=== PATIENT | female | born 1985 | race Caucasian/White ===

== ENCOUNTER 2016-07-26 06:02 | Day surgery (SDC) | payer BC ==
[2016-07-21 17:34] LABS: BASOPHILS 0.2 %; BASOPHILS ABSOLUTE 0.02 10/3/uL (0.0-0.16); EOSINOPHILS 0.8 %; EOSINOPHILS ABSOLUTE 0.08 10/3/uL (0.0-0.53); HEMATOCRIT 37.7 % (36.0-48.0); HEMOGLOBIN 12.6 g/dL (12.0-16.0); IMMATURE GRANULOCYTES 0.2 %; IMMATURE GRANULOCYTES ABSOLUTE 0.02 10/3/uL (0.0-0.11); LYMPHOCYTES 20.2 %; LYMPHOCYTES ABSOLUTE 2.05 10/3/uL (0.67-4.30); MANUAL DIFF NO %; MEAN CORPUS HGB CONC 33.4 g/dL (32.0-36.0); MEAN CORPUSCULAR HEMOGLOB 31.2 pg (26.0-34.0); MEAN CORPUSCULAR VOLUME 93.3 fL (80-100); MEAN PLATELET VOLUME 9.4 fL (9.2-13.0); MONOCYTES 5.5 %; MONOCYTES ABSOLUTE 0.56 10/3/uL (0.21-1.20); NEUTROPHILS 73.1 %; NEUTROPHILS ABSOLUTE 7.41 10/3/uL (2.02-8.40); PLATELET COUNT 336 10/3/uL (150-400); RED CELL COUNT 4.04 10/6/uL (4.0-5.6); WHITE BLOOD CELLS 10.1 10/3/uL (4.5-10.5)
[2016-07-21 17:46] LABS: A/G RATIO 1.2 (0.7-1.9); ALBUMIN 3.8 G/DL (3.5-5.0); ALKALINE PHOSPHATASE 76 U/L (45-117); BUN (BLOOD UREA NITROGEN) 16 MG/DL (6-23); CALCIUM, SERUM 8.6 MG/DL (8.5-10.4); CHLORIDE, SERUM 104 MMOL/L (96-112); CO2 (CARBON DIOXIDE) 29 MMOL/L (24-34); CREATININE 0.69 MG/DL (0.55-1.02); GFR AFRICAN AMERICAN 133 ML/MIN (>=60); GFR NON AFRICAN AMERICAN 114 ML/MIN (>=60); GLOBULIN 3.1 G/DL (2.5-4.1); GLUCOSE, SERUM 83 MG/DL (60-99); POTASSIUM, SERUM 3.7 MMOL/L (3.5-5.3); SGOT(AST) 12 U/L (5-40); SGPT(ALT) 15 U/L (5-65); SODIUM, SERUM 140 MMOL/L (135-148); TOTAL PROTEIN 6.9 G/DL (6.0-8.5)
--- NOTE | ~2016-07-26 | OP ---
Record Of Operation [facility] [address] [place]. [address] NAME: DONA COLLAZO : 81 STATUS : REG [facility] PAT#: [id number] AGE: 31 ADM/REG DATE : 07/26/16 MR#: [id number] REPORT SERV DATE: 07/26/16 DICTATED BY: ADIEL ANTUNEZ DATE: 07/26/16 REPORT STATUS : Draft TRANSCRIBED BY: MODL DATE: 07/26/16 DATE OF PROCEDURE: 07/26/2016 PREOPERATIVE DIAGNOSIS: Symptomatic cholelithiasis. POSTOPERATIVE DIAGNOSIS: Symptomatic cholelithiasis. OPERATION PERFORMED: Laparoscopic cholecystectomy. SURGEON: Adiel Antunez MD. ANESTHESIA: General. ESTIMATED BLOOD LOSS: Less than 10 mL. IV FLUIDS: Adequate. INDICATION FOR PROCEDURE: Ms. Collazo is a 31-year-old white female who has had episodes of right upper quadrant pain and nausea. She has an ultrasound, which shows cholelithiasis. She was brought to the operating room today for laparoscopic cholecystectomy. Full risks and benefits of the procedure were discussed with the patient preoperatively and are outlined in admission H and P. DESCRIPTION OF OPERATION: After appropriate sedation, the patient was prepped and draped in proper sterile fashion. Skin and subcutaneous tissues around the umbilicus infiltrated with local anesthesia. A vertical incision was made at the umbilical skin. She had a small umbilical hernia, which was opened up slightly, and a 10-mm trocar was placed in the abdomen. The abdomen was then insufflated to 15 mmHg. We placed 10 mm subxiphoid and two right lateral 5 mm trocars under direct visualization after obtaining local anesthesia in a standard fashion. The gallbladder was visualized and it was noted to be thick-walled with multiple stones visible. It was grasped and taken cephalad. We incised the peritoneum on both sides of the gallbladder to help with mobilization. We dissected out the cystic artery and cystic duct as well as posterior of the gallbladder and we were therefore able to demonstrate the critical view of safety. The cystic artery was ligated between hemoclips. The cystic duct was ligated between hemoclips. The gallbladder was removed from gallbladder fossa using hook cautery and brought through the umbilical trocar site. We did have to increase the size of the umbilical trocar site due to the large size of the stones. The umbilical trocar was replaced. We visualized the right upper quadrant. There was no evidence of bleeding or bile leak. We visualized our clips, which were intact. We instilled 20 mL of Marcaine over the right lobe of the liver. We removed our trocars under direct visualization. There was no evidence of bleeding from the abdominal wall. The abdomen was then desufflated. The fascia at the umbilical trocar site was then closed using 0 Vicryl suture. The skin was closed using interrupted running 4-0 Monocryl suture. Steri- Strips and dressings were then placed. The patient was taken to the recovery room in satisfactory condition. Record Of Operation [facility] [address] [facility] [place]. [address] NAME: DONA COLLAZO : 81 STATUS : REG [facility]#: [id number] AGE: 31 ADM/REG DATE : 07/26/16 MR#: [id number] REPORT SERV DATE: 07/26/16 DICTATED BY: ADIEL ANTUNEZ DATE: 07/26/16 REPORT STATUS : Draft TRANSCRIBED BY: ROSALIND DATE: 07/26/16 GINNY/ROSALIND Adiel Antunez M.D. / [id number] CC: Wolfgang Hughes M.D.
[~2016-07-26 06:02] MED LIST: PROTONIX20 MG PO
== END 2016-07-26 14:22 | disposition home or self-care (01) ==
LOC: SDC 06:02
PROVIDERS: Specialist
PROC: 0FT44ZZ Resection of Gallbladder, Percutaneous Endoscopic Approach (ICD-10-PCS; principal; 2016-07-26 07:15)
DX: K80.10 Calculus of gallbladder with chronic cholecystitis without obstruction (principal); K21.9 Gastro-esophageal reflux disease without esophagitis; Z86.010 Personal history of colon polyps; Z90.89 Acquired absence of other organs; Z98.890 Other specified postprocedural states
CPT/HCPCS: 80053; 84703; 85025; 88304; A9270-GY; J0690; J1170; J2250; J2370; J2405; J2710; J3010; Q9967